=== PATIENT | male | born 1955 | race Caucasian/White ===

== ENCOUNTER → 2017-03-21 | Outpatient (CLI) | payer OTHER | LOC: M WUC 08:40 | PROVIDERS: ATTEND Emergency Medicine | DX: E78.2 Mixed hyperlipidemia (principal); N40.0 Benign prostatic hyperplasia without lower urinary tract symptoms ==

== ENCOUNTER 2018-05-21 06:38 | Day surgery (SDC) | payer BC, OTHER ==
[~2018-05-21] VITALS: Ht 157.5 cm; Wt 54.4 kg
[~2018-05-21 06:38] MED LIST: ASPI1TAB PO; MULTTAB PO; NS 1,000 ML IV ONE
[2018-05-21] MEDS ORDERED: PROPOFOL 200 MG/20 ML VIAL As Ordered ONE ×4 (07:30→08:21)
--- NOTE | 2018-05-21 08:26 | ROOR ---
Patient Name: Vito Obregon Procedure Date: 05/21/2018 7:35 AM Date of : 1955 Age: 62 Room: [facility] Gender: Male Note Status: Finalized Procedure: Colonoscopy Indications: Colon cancer screening in patient at increased risk: Family history of 1st-degree relative with colon polyps, Last colonoscopy 10 years ago Providers: Mike Cornejo MD Referring MD: Digna Leal MD Requesting Provider: Medicines: Monitored Anesthesia Care Complications: No immediate complications. Procedure: Pre-Anesthesia Assessment: - Prior to the procedure, a History and Physical was performed, and patient medications and allergies were reviewed. The patient is competent. The risks and benefits of the procedure and the sedation options and risks were discussed with the patient. All questions were answered and informed consent was obtained. Patient identification and proposed procedure were verified by the physician, the nurse and the anesthesiologist in the procedure room. Mental Status Examination: alert and oriented. Airway Examination: normal oropharyngeal airway and neck mobility. CV Examination: regular rate and rhythm. Prophylactic Antibiotics: The patient does not require prophylactic antibiotics. Prior Anticoagulants: The patient has taken no previous anticoagulant or antiplatelet agents. ASA Grade Assessment: II - A patient with mild systemic disease. After reviewing the risks and benefits, the patient was deemed in satisfactory condition to undergo the procedure. The anesthesia plan was to use monitored anesthesia care (MAC). Immediately prior to administration of medications, the patient was re-assessed for adequacy to receive sedatives. The heart rate, respiratory rate, oxygen saturations, blood pressure, adequacy of pulmonary ventilation, and response to care were monitored throughout the procedure. The physical status of the patient was re-assessed after the procedure. The Colonoscope was introduced through the anus and advanced to the sigmoid colon. The colonoscopy was unusually difficult due to a tortuous colon. The patient tolerated the procedure well. The quality of the bowel preparation was excellent. Findings: The perianal and digital rectal examinations were normal. The sigmoid colon was angulated to the extent that the scope could not be advanced further. I changed to a pediatric scope without success in advancing the scope beyond 45 cm. Impression: - Tortuous colon. - No specimens collected. Recommendation: - Perform an air contrast barium enema today. Mike Cornejo MD 05/21/2018 8:26:23 AM This report has been signed electronically. Number of Addenda: 0 Note Initiated On: 05/21/2018 7:35 AM Estimated Blood Loss: Estimated blood loss: none.
[2018-05-21 08:55] VITALS: BP 138/85
[2018-05-21] MEDS ORDERED: LIQUID POLIBAR PLUS 105% w/v 1900ML BTL As Ordered ONE (10:31)
--- NOTE | 2018-05-21 17:36 | REP ---
BARIUM ENEMA AIR CONTRAST The procedure was performed under the direct supervision of Dr. Rodriguez. The images were reviewed with Dr. Rodriguez. The patient is status post incomplete colonoscopy. The workforce management analyst film shows no organomegaly or pathological masses. The intestinal gas pattern is nonspecific. Liquid barium and air were instilled into the colon and retrograde flow of the barium air mixture. The colon is normal in position and contour. Haustration is unremarkable throughout. There are a few mobile filling defects seen throughout the examination consistent with small stool particles from incomplete cleansing. There are a few diverticula seen in the sigmoid colon. There are no annular constricting lesions identified. There are no polypoid masses identified. There is free flow of contrast to the cecum. There is reflux into the terminal ileum. Impression: There is diverticulosis without evidence of diverticulitis. Otherwise, unremarkable double contrast barium enema. 2 minutes of fluoroscopy time was utilized for this procedure. Reviewed by GLORIA Jensen 05/21/2018 04:46 P Electronically Signed by Vito Rodriguez MD 05/21/2018 05:26 P
== END 2018-05-21 10:37 | disposition home or self-care (01) ==
LOC: M OPP 06:38
PROVIDERS: ATTEND Surgery
DX: Z12.11 Encounter for screening for malignant neoplasm of colon (principal); Z83.71 Family history of colonic polyps; Q43.8 Other specified congenital malformations of intestine; E78.5 Hyperlipidemia, unspecified; M19.90 Unspecified osteoarthritis, unspecified site; N40.1 Benign prostatic hyperplasia with lower urinary tract symptoms; Z87.891 Personal history of nicotine dependence; Z79.82 Long term (current) use of aspirin

== ENCOUNTER → 2019-03-10 | Outpatient (REF) | payer OTHER ==
[~2019-03-10] MED LIST changes: -ASPI1TAB PO; +ASPI81TA26 PO; -NS 1,000 ML IV ONE
[2019-03-10 12:54] LABS: BASO % 0.5 % (0.0-1.0); EOS # 0.1 10^3/uL (0.0-0.5); EOS % 1.6 % (0.0-3.0); HEMATOCRIT 48.6 % (42.0-52.0); HEMOGLOBIN 16.7 g/dl (13.5-17.5); LYMPH # 1.8 10^3/uL (1.5-5.0); LYMPH % 33.6 % (24.0-44.0); MEAN CORPUSCULAR HEMOGLOBIN 30.8 pg (27.0-33.0); MEAN CORPUSCULAR HGB CONC 34.4 g/dl (32.0-36.5); MEAN CORPUSCULAR VOLUME 89.7 fl (80.0-96.0); MONO # 0.7 10^3/uL (0.0-0.8); MONO % 12.4 % (0.0-5.0); NEUTROPHILS # 2.8 10^3/uL (1.5-8.5); NEUTROPHILS % 51.7 % (36.0-66.0); PLATELET COUNT, AUTOMATED 285 10^3/uL (150-450); RED BLOOD COUNT 5.42 10^6/uL (4.30-6.10); WHITE BLOOD COUNT 5.5 10^3/uL (4.0-10.0)
[2019-03-10 13:26] LABS: ALBUMIN 4.2 GM/DL (3.2-5.2); ALT/SGPT 25 U/L (12-78); BILIRUBIN,TOTAL 1.9 MG/DL (0.2-1.0); BLOOD UREA NITROGEN 21 MG/DL (7-18); CALCIUM LEVEL 9.5 MG/DL (8.8-10.2); CARBON DIOXIDE LEVEL 28 MEQ/L (21-32); CHLORIDE LEVEL 109 MEQ/L (98-107); CHOLESTEROL LEVEL 219 MG/DL (<200); CHOLESTEROL RISK RATIO 3.775 (<5); CREATININE FOR GFR 1.05 MG/DL (0.70-1.30); GLOMERULAR FILTRATION RATE > 60.0 (>49); GLUCOSE, FASTING 98 MG/DL (70-100); HDL CHOLESTEROL 58 MG/DL (>40); LDL CHOLESTEROL 148 MG/DL (<100); NON-HDL-C 161 MG/DL; POTASSIUM SERUM 4.3 MEQ/L (3.5-5.1); PROSTATIC SPECIFIC AG MONITOR 2.22 NG/ML (< 4.00); SODIUM LEVEL 142 MEQ/L (136-145); TRIGLYCERIDES LEVEL 67 MG/DL (<150)
== END ==
LOC: M LABDRAWC 06:49
PROVIDERS: ATTEND Physician Assistant
DX: E78.2 Mixed hyperlipidemia (principal); K21.9 Gastro-esophageal reflux disease without esophagitis; N40.0 Benign prostatic hyperplasia without lower urinary tract symptoms

== ENCOUNTER → 2020-03-03 | Outpatient (REF) | payer OTHER ==
[2020-03-03 13:42] LABS: ALBUMIN 4.1 GM/DL (3.2-5.2); ALT/SGPT 109 U/L (12-78); BILIRUBIN,TOTAL 2.2 MG/DL (0.2-1.0); BLOOD UREA NITROGEN 21 MG/DL (7-18); CALCIUM LEVEL 9.8 MG/DL (8.8-10.2); CARBON DIOXIDE LEVEL 30 MEQ/L (21-32); CHLORIDE LEVEL 105 MEQ/L (98-107); CHOLESTEROL LEVEL 205 MG/DL (<200); CREATININE FOR GFR 1.18 MG/DL (0.70-1.30); GLOMERULAR FILTRATION RATE > 60.0 (>49); GLUCOSE, FASTING 83 MG/DL (70-100); HDL CHOLESTEROL 50 MG/DL (>40); LDL CHOLESTEROL 125 MG/DL (<100); NON-HDL-C 155 MG/DL; POTASSIUM SERUM 4.4 MEQ/L (3.5-5.1); SODIUM LEVEL 139 MEQ/L (136-145); TOTAL PROTEIN 7.1 GM/DL (6.4-8.2); TRIGLYCERIDES LEVEL 149 MG/DL (<150)
== END ==
LOC: M LABDRAWC 11:15
PROVIDERS: ATTEND Nurse Practitioner Family
DX: E78.2 Mixed hyperlipidemia (principal)

== ENCOUNTER → 2020-03-17 | Outpatient (CLI) | payer BC, OTHER ==
--- NOTE | 2020-03-17 15:57 | REP ---
INDICATION: MIXED HYPERLIPIDEMIA COMPARISON: None TECHNIQUE: Real time B-mode orozco scale ultrasound examination using curved array transducer. FINDINGS: The the liver is essentially normal although a 1.7 x 0.6 x 0.7 cm hypoechoic area is identified along the right lateral cortex which may represent small hepatic cyst and is otherwise nonspecific by ultrasound examination. Spleen, and pancreas are normal in contour, size, echogenicity, and overall appearance. No focal splenic or pancreatic lesions are identified. Splenic index equals 262. Gallbladder demonstrates cholelithiasis without wall thickening, or pericholecystic fluid. No biliary ductal dilatation is appreciated although the common bile duct measures 5.8 mm in diameter. The bilateral kidneys are normal in rate form shape without hydronephrosis or obvious abnormality. Left kidney measures 9.6 x 5.0 x 5.5 cm with 1.5 cm complex hypoechoic midpole region suggesting complex cyst. Right kidney measures 9.6 x 4.5 x 4.9 cm with increased central sinus fat. Atherosclerotic changes to the visualized abdominal aorta noted. No obvious ascites. IMPRESSION: 1. Small hepatic hypodensity may represent complex cyst. 2. Cholelithiasis. 3. 1.5 cm complex left renal hypodensity likely complex cyst. Consider pre and postcontrast CT of the abdomen to confirm finding. <Electronically signed by Live Yang > 03/17/20 [id number]
== END ==
LOC: M RAD 08:48
PROVIDERS: ATTEND Nurse Practitioner Family
DX: E78.2 Mixed hyperlipidemia (principal); K80.20 Calculus of gallbladder without cholecystitis without obstruction; R93.422 Abnormal radiologic findings on diagnostic imaging of left kidney

== ENCOUNTER → 2020-04-01 | Outpatient (REF) | payer OTHER ==
[2020-04-01 12:04] LABS: BASO % 0.5 % (0.0-1.0); EOS # 0.1 10^3/uL (0.0-0.5); EOS % 1.3 % (0.0-3.0); HEMATOCRIT 50.9 % (42.0-52.0); HEMOGLOBIN 17.4 g/dl (13.5-17.5); LYMPH # 1.8 10^3/uL (1.5-5.0); LYMPH % 29.4 % (24.0-44.0); MEAN CORPUSCULAR HEMOGLOBIN 30.9 pg (27.0-33.0); MEAN CORPUSCULAR HGB CONC 34.2 g/dl (32.0-36.5); MEAN CORPUSCULAR VOLUME 90.2 fl (80.0-96.0); MONO # 0.6 10^3/uL (0.0-0.8); MONO % 9.7 % (0.0-5.0); NEUTROPHILS # 3.6 10^3/uL (1.5-8.5); NEUTROPHILS % 58.8 % (36.0-66.0); PLATELET COUNT, AUTOMATED 301 10^3/uL (150-450); RED BLOOD COUNT 5.64 10^6/uL (4.30-6.10); WHITE BLOOD COUNT 6.2 10^3/uL (4.0-10.0)
[2020-04-01 12:16] LABS: INR 0.93; PROTHROMBIN TIME 12.7 SECONDS (12.5-14.3)
[2020-04-01 13:17] LABS: ALBUMIN 4.3 GM/DL (3.2-5.2); ALT/SGPT 28 U/L (12-78); BILIRUBIN,DIRECT 0.3 MG/DL (0.0-0.2); BILIRUBIN,TOTAL 1.9 MG/DL (0.2-1.0); FERRITIN 272 NG/ML (26-388); FREE T4 1.05 NG/DL (0.76-1.46); HEPATITIS B SURFACE ANTIBODY NEGATIVE (POSITIVE); HEPATITIS B SURFACE ANTIGEN NEGATIVE (NEGATIVE); HEPATITIS C VIRUS ABY INDEX < 0.0 INDEX (<0.8); IRON (FE) 152 UG/DL (65-175); LDH LACTATE DEHYDROGENASE 166 U/L (87-241); PERCENT SATURATION 53.9 % (19.7-50.0); TOTAL IRON BINDING CAPACITY 282 UG/DL (250-450); TOTAL PROTEIN 7.2 GM/DL (6.4-8.2)
[2020-04-02 08:09] LABS: HBVCOREDIFF1 Negative (Negative); HBVCOREDIFF2 Negative (Negative); TRANSFERRIN 219 mg/dL (177-329)
== END ==
LOC: M LABDRAWC 11:12
PROVIDERS: ATTEND Nurse Practitioner Family
DX: R94.5 Abnormal results of liver function studies (principal)

== ENCOUNTER → 2020-04-06 | Outpatient (CLI) | payer BC, OTHER ==
[~2020-04-06] MED LIST changes: +GASTROGRAFIN SOLUTION 30ML (Q9963) As Ordered ONE; +ISOVUE-370 76% 100ML VIAL As Ordered ONE
--- NOTE | 2020-04-06 18:49 | REP ---
INDICATION: CYST ON LIVER AND LEFT KIDNEY COMPARISON: Ultrasound 03/17/2020. TECHNIQUE: CT Scan of the abdomen was performed with and without intravenous administration of 100 cc of Isovue 370, without oral contrast. FINDINGS: Lung bases: Unremarkable. Liver: Along the posterior surface of the liver on the right, contiguous with the posterior right hemidiaphragm there is an oval hypodense area likely corresponding to the sonographic abnormality in this region. This is felt to represent a diaphragmatic slip. Gallbladder: Multiple small gallstones are seen in the gallbladder.Between the fundus of the gallbladder and hepatic flexure of the colon there is an oval structure with central enhancement measuring about 2.5 x 1.8 cm. The central enhancement is somewhat linear and appears to be contiguous with the lumen of the gallbladder. There is no fat plane the structure from the adjacent colon. I would favor that this represents focal thickening of the fundus of the gallbladder, and early neoplasm is not excluded. Spleen: Normal. Adrenals: Normal. Pancreas: Normal. Kidneys: There are no renal stones or hydronephrosis. In the mid left kidney at the site of a suspected complex cystic structure on the recent ultrasound there is a parapelvic cyst slightly greater than 1 cm in diameter. No other renal lesions are seen. Small and large bowel: Unremarkable. Free fluid: None. Abdominal aorta: No aneurysm or dissection. Adenopathy: None. Appendix: Not inflamed. Osseous structures: There are degenerative changes of the spine without compression deformity. IMPRESSION: Along the posterior surface of the liver on the right, contiguous with the posterior right hemidiaphragm there is an oval hypodense area felt to represent a diaphragmatic slip. Multiple gallstones in the gallbladder. Between the fundus of the gallbladder and hepatic flexure of the colon there is an oval thick-walled structure with what appears to be central mucosal enhancement. This enhancement appears to be contiguous with the lumen of the gallbladder and I suspect this represents focal significant thickening of the fundus of the gallbladder. Early neoplasm is not excluded. Parapelvic cyst mid left kidney corresponds to the cystic structure on the recent ultrasound. <Electronically signed by Iván Marin > 04/06/20 [id number]
== END ==
LOC: M RAD 16:28
PROVIDERS: ATTEND Nurse Practitioner Family
DX: N28.1 Cyst of kidney, acquired (principal); K76.89 Other specified diseases of liver

== ENCOUNTER → 2020-04-26 | Outpatient (CLI) | payer SELFPAY ==
[~2020-04-26] MED LIST changes: -GASTROGRAFIN SOLUTION 30ML (Q9963) As Ordered ONE; -ISOVUE-370 76% 100ML VIAL As Ordered ONE
== END ==
LOC: M LABSMTC 12:39
PROVIDERS: ATTEND Pediatrics
DX: Z20.828 Contact with and (suspected) exposure to other viral communicable diseases (principal)

== ENCOUNTER → 2020-06-15 | Outpatient (REF) | payer OTHER ==
[2020-06-16 12:41] LABS: CREATININE FOR GFR 1.3 MG/DL (0.70-1.30)
== END ==
LOC: M LABDRAWC 11:15
PROVIDERS: ATTEND Surgery
DX: R93.3 Abnormal findings on diagnostic imaging of other parts of digestive tract (principal); K80.20 Calculus of gallbladder without cholecystitis without obstruction

== ENCOUNTER → 2020-06-22 | Outpatient (CLI) | payer BC, OTHER ==
[~2020-06-22] MED LIST changes: +PROHANCE 279.3MG/ML 5ML VIAL As Ordered ONE
--- NOTE | 2020-06-23 08:44 | REP ---
INDICATION: CHOLELITHIASIS WITHOUT OBSTRUCTION. Thickened gallbladder fundus. COMPARISON: Comparison is made with the abdominal sonography from [address] abdomen from 06 April 2020.. TECHNIQUE: MRI without and with IV contrast/MRCP combined technique. T1 and T2 weighted axial and coronal sequences include spin echo, fast spin echo, in and out of phase, gradient echo, diffusion-weighted scans, and dynamically acquired sequential postcontrast images. MRCP acquisition is performed in maximum intensity projection images are included. The gadolinium enhancement dose is 5 mL intravenous ProHance, half dose protocol. FINDINGS: T2 weighted scans demonstrate 1 or 2 tiny subcentimeter cysts in the liver and pancreas. No biliary or pancreatic ductal dilation is observed. No focal liver mass lesion is seen. There are low T1 low T2 signal intensity gallstones layering in the dependent portion of the main body of the gallbladder. At the fundus of the gallbladder and a configuration suggestive of Phrygian cap, the "cap" portion of the gallbladder contains central low T1 low T2 signal intensity material with cystic change in its wall circumferentially. This portion of the gallbladder wall enhances similar to the gallbladder wall in the remainder of the gallbladder. There is no clear-cut enhancing mass lesion. I suspect the findings are present chronic cholecystitis affecting the fundus of the gallbladder with 1 or 2 stones within the fundus. There is certainly no mass in the adjacent liver. Normal adrenals are seen. No pancreatic mass lesion is observed. There is no evidence of choledocholithiasis or stricture in the biliary or pancreatic ductal tree on MRCP images. No upper abdominal adenopathy is seen. The kidneys enhance symmetrically. Sonography and CT has shown a parapelvic cyst in the left kidney. T2 weighted images show several small parapelvic cysts in the left kidney and 1 in the lower pole of the right kidney. No large cyst is seen. No splenic abnormality. IMPRESSION: Cholelithiasis and findings consistent with chronic cholecystitis. There is mild diffuse gallbladder wall thickening and enhancement, including what appears to be a somewhat contracted Phrygian cap at the fundus of the gallbladder likely containing stones. There is no evidence of enhancing mass. <Electronically signed by Low Rodriguez > 06/23/20 [id number]
== END ==
LOC: M RAD 16:46
PROVIDERS: ATTEND Surgery
DX: K80.80 Other cholelithiasis without obstruction (principal); K76.89 Other specified diseases of liver; K86.2 Cyst of pancreas
CPT/HCPCS: 74183; A9576

== ENCOUNTER → 2021-03-10 | Outpatient (REF) | payer BC, OTHER ==
[~2021-03-10] MED LIST changes: -PROHANCE 279.3MG/ML 5ML VIAL As Ordered ONE
[2021-03-10 11:34] LABS: BASO % 0.6 % (0.0-1.0); EOS # 0.1 10^3/uL (0.0-0.5); EOS % 1.4 % (0.0-3.0); HEMATOCRIT 48.5 % (42.0-52.0); HEMOGLOBIN 16.5 g/dl (13.5-17.5); LYMPH # 2.1 10^3/uL (1.5-5.0); LYMPH % 28.3 % (24.0-44.0); MEAN CORPUSCULAR HEMOGLOBIN 30.3 pg (27.0-33.0); MONO # 0.6 10^3/uL (0.0-0.8); MONO % 8.8 % (2.0-8.0); NEUTROPHILS # 4.4 10^3/uL (1.5-8.5); NEUTROPHILS % 60.8 % (36.0-66.0); PLATELET COUNT, AUTOMATED 291 10^3/uL (150-450); RED BLOOD COUNT 5.45 10^6/uL (4.30-6.10); WHITE BLOOD COUNT 7.3 10^3/uL (4.0-10.0)
[2021-03-10 12:05] LABS: ALBUMIN 3.9 GM/DL (3.2-5.2); ALT/SGPT 26 U/L (12-78); BILIRUBIN,TOTAL 1.8 MG/DL (0.2-1.0); BLOOD UREA NITROGEN 20 MG/DL (7-18); CALCIUM LEVEL 9.2 MG/DL (8.8-10.2); CARBON DIOXIDE LEVEL 26 MEQ/L (21-32); CHLORIDE LEVEL 107 MEQ/L (98-107); CHOLESTEROL LEVEL 242 MG/DL (<200); CHOLESTEROL RISK RATIO 4.938 (<5); CREATININE FOR GFR 1.24 MG/DL (0.70-1.30); FERRITIN 319 NG/ML (26-388); GLOMERULAR FILTRATION RATE > 60.0 (>49); GLUCOSE, FASTING 89 MG/DL (70-100); HDL CHOLESTEROL 49 MG/DL (>40); IRON (FE) 141 UG/DL (65-175); LDL CHOLESTEROL 174 MG/DL (<100); NON-HDL-C 193 MG/DL; PERCENT SATURATION 50.9 % (19.7-50.0); POTASSIUM SERUM 4.5 MEQ/L (3.5-5.1); SODIUM LEVEL 140 MEQ/L (136-145); TOTAL IRON BINDING CAPACITY 277 UG/DL (250-450); TOTAL PROTEIN 6.8 GM/DL (6.4-8.2); TRIGLYCERIDES LEVEL 94 MG/DL (<150)
== END ==
LOC: M LABDRAWC 11:12
PROVIDERS: ATTEND Nurse Practitioner Family
DX: Z00.00 Encounter for general adult medical examination without abnormal findings (principal); Z83.49 Family history of other endocrine, nutritional and metabolic diseases

== ENCOUNTER → 2022-01-05 | Outpatient (CLI) | payer BC, OTHER, MEDICARE ==
[2022-01-05 18:14] LABS: BASO % 0.3 % (0.0-1.0); EOS # 0.1 10^3/uL (0.0-0.5); EOS % 0.9 % (0.0-3.0); HEMATOCRIT 48.9 % (42.0-52.0); HEMOGLOBIN 16.5 g/dl (13.5-17.5); LYMPH # 1.9 10^3/uL (1.5-5.0); LYMPH % 17.2 % (24.0-44.0); MEAN CORPUSCULAR HEMOGLOBIN 30.8 pg (27.0-33.0); MEAN CORPUSCULAR HGB CONC 33.7 g/dl (32.0-36.5); MEAN CORPUSCULAR VOLUME 91.2 fl (80.0-96.0); MONO # 1.1 10^3/uL (0.0-0.8); MONO % 10.4 % (2.0-8.0); NEUTROPHILS # 7.6 10^3/uL (1.5-8.5); NEUTROPHILS % 70.1 % (36.0-66.0); PLATELET COUNT, AUTOMATED 304 10^3/uL (150-450); RED BLOOD COUNT 5.36 10^6/uL (4.30-6.10); WHITE BLOOD COUNT 10.9 10^3/uL (4.0-10.0)
[2022-01-05 18:46] LABS: ALT/SGPT 23 U/L (12-78); BILIRUBIN,TOTAL 1.5 MG/DL (0.2-1.0); BLOOD UREA NITROGEN 22 MG/DL (7-18); CALCIUM LEVEL 9.2 MG/DL (8.8-10.2); CARBON DIOXIDE LEVEL 26 MEQ/L (21-32); CHLORIDE LEVEL 105 MEQ/L (98-107); CREATININE FOR GFR 1.07 MG/DL (0.70-1.30); GLOMERULAR FILTRATION RATE > 60.0 (>49); GLUCOSE, FASTING 103 MG/DL (70-100); POTASSIUM SERUM 3.8 MEQ/L (3.5-5.1); SODIUM LEVEL 137 MEQ/L (136-145); TOTAL PROTEIN 6.7 GM/DL (6.4-8.2)
== END ==
LOC: M PLAIMG 15:38
PROVIDERS: ATTEND Nurse Practitioner Family
DX: K58.2 Mixed irritable bowel syndrome (principal)

== ENCOUNTER → 2022-03-08 | Outpatient (REF) | payer MEDICARE, BC, OTHER ==
[2022-03-08 18:12] LABS: BASO % 0.5 % (0.0-1.0); EOS # 0.1 10^3/uL (0.0-0.5); EOS % 1.5 % (0.0-3.0); HEMATOCRIT 48.6 % (42.0-52.0); HEMOGLOBIN 16.3 g/dl (13.5-17.5); LYMPH # 1.9 10^3/uL (1.5-5.0); MEAN CORPUSCULAR HEMOGLOBIN 30.8 pg (27.0-33.0); MEAN CORPUSCULAR HGB CONC 33.5 g/dl (32.0-36.5); MEAN CORPUSCULAR VOLUME 91.7 fl (80.0-96.0); MONO # 0.7 10^3/uL (0.0-0.8); MONO % 9.4 % (2.0-8.0); NEUTROPHILS # 4.7 10^3/uL (1.5-8.5); NEUTROPHILS % 62.3 % (36.0-66.0); PLATELET COUNT, AUTOMATED 329 10^3/uL (150-450); WHITE BLOOD COUNT 7.5 10^3/uL (4.0-10.0)
[2022-03-08 18:57] LABS: ALT/SGPT 26 U/L (12-78); BILIRUBIN,TOTAL 1.4 MG/DL (0.2-1.0); BLOOD UREA NITROGEN 19 MG/DL (7-18); C REACTIVE PROTEIN QUANTITATIV 0.34 MG/DL (0.00-0.30); CALCIUM LEVEL 8.9 MG/DL (8.8-10.2); CARBON DIOXIDE LEVEL 27 MEQ/L (21-32); CHLORIDE LEVEL 104 MEQ/L (98-107); CREATININE FOR GFR 1.04 MG/DL (0.70-1.30); GLOMERULAR FILTRATION RATE > 60.0 (>49); GLUCOSE, FASTING 119 MG/DL (70-100); POTASSIUM SERUM 4.6 MEQ/L (3.5-5.1); SODIUM LEVEL 139 MEQ/L (136-145); TOTAL PROTEIN 6.6 GM/DL (6.4-8.2)
== END ==
LOC: M LABDRAWC 17:25
PROVIDERS: ATTEND Student in an Organized Health Care Education/Training Program
DX: R19.7 Diarrhea, unspecified (principal)

== ENCOUNTER → 2022-05-09 | Outpatient (REF) | payer MEDICARE, BC, OTHER ==
[2022-05-09 11:36] LABS: BASO % 0.5 % (0.0-1.0); EOS # 0.1 10^3/uL (0.0-0.5); EOS % 1.7 % (0.0-3.0); HEMOGLOBIN 17.2 g/dl (13.5-17.5); LYMPH % 27.3 % (24.0-44.0); MEAN CORPUSCULAR HEMOGLOBIN 30.9 pg (27.0-33.0); MEAN CORPUSCULAR HGB CONC 34.4 g/dl (32.0-36.5); MEAN CORPUSCULAR VOLUME 89.8 fl (80.0-96.0); MONO # 0.8 10^3/uL (0.0-0.8); MONO % 10.1 % (2.0-8.0); NEUTROPHILS # 4.5 10^3/uL (1.5-8.5); NEUTROPHILS % 60.1 % (36.0-66.0); PLATELET COUNT, AUTOMATED 318 10^3/uL (150-450); RED BLOOD COUNT 5.57 10^6/uL (4.30-6.10); WHITE BLOOD COUNT 7.4 10^3/uL (4.0-10.0)
[2022-05-09 12:00] LABS: TOTAL IRON BINDING CAPACITY 297 UG/DL (250-425)
[2022-05-09 12:02] LABS: ALBUMIN 4.1 G/DL (3.2-5.2); ALKALINE PHOSPHATASE 119 U/L (46-116); ALT/SGPT 131 U/L (7.0-40); AST/SGOT 76 U/L (<34); BILIRUBIN,TOTAL 1.5 MG/DL (0.3-1.2); BLOOD UREA NITROGEN 21 MG/DL (9-23); CALCIUM LEVEL 9.6 MG/DL (8.3-10.6); CARBON DIOXIDE LEVEL 29 MMOL/L (20-31); CHLORIDE LEVEL 104 MMOL/L (98-107); CHOLESTEROL LEVEL 236 MG/DL (<200); CHOLESTEROL RISK RATIO 4.47 (<5); CREATININE FOR GFR 1.07 MG/DL (0.70-1.30); GLOMERULAR FILTRATION RATE > 60.0 (>49); GLUCOSE, FASTING 95 MG/DL (74-106); HDL CHOLESTEROL 52.7 MG/DL (>40); IRON (FE) 134 UG/DL (65-175); LDL CHOLESTEROL 170.7 MG/DL (<100); NON-HDL-C 183 MG/DL; PERCENT SATURATION 45.1 % (19.7-50.0); POTASSIUM SERUM 4.7 MMOL/L (3.5-5.1); SODIUM LEVEL 140 MMOL/L (136-145); TOTAL PROTEIN 6.6 G/DL (5.7-8.2); TRIGLYCERIDES LEVEL 63 MG/DL (<150)
[2022-05-09 12:03] LABS: FERRITIN 272.3 NG/ML (10.5-307.3)
== END ==
LOC: M LABDRAWC 11:13
PROVIDERS: ATTEND Nurse Practitioner Family
DX: E78.2 Mixed hyperlipidemia (principal); N40.0 Benign prostatic hyperplasia without lower urinary tract symptoms; Z83.49 Family history of other endocrine, nutritional and metabolic diseases
CPT/HCPCS: 36415; 80053; 80061; 82728; 83550; 85025; G0103

== ENCOUNTER → 2023-10-19 | Outpatient (REF) | payer MEDICARE, BC | LOC: M SFHCCLAY 12:35 | PROVIDERS: ATTEND Physician Assistant | DX: Z12.5 Encounter for screening for malignant neoplasm of prostate (principal) ==

== ENCOUNTER → 2024-05-14 | Outpatient (REF) | payer MEDICARE, BC ==
[2024-05-14 11:33] LABS: PSA SCREENING 2.17 NG/ML (< 4.00)
[2024-05-14 11:35] LABS: ALKALINE PHOSPHATASE 101 U/L (40-129); ALT/SGPT 26 U/L (7.0-40); AST/SGOT 20 U/L (<34); BILIRUBIN,TOTAL 1.7 MG/DL (0.3-1.2); BLOOD UREA NITROGEN 20 MG/DL (9-23); CALCIUM LEVEL 9.3 MG/DL (8.3-10.6); CARBON DIOXIDE LEVEL 29 MMOL/L (20-31); CHLORIDE LEVEL 108 MMOL/L (98-107); CHOLESTEROL LEVEL 222 MG/DL (<200); CREATININE FOR GFR 1.06 MG/DL (0.70-1.30); GLOMERULAR FILTRATION RATE > 60.0 (>49); GLUCOSE, FASTING 87 MG/DL (74-106); HDL CHOLESTEROL 49.3 MG/DL (>40); LDL CHOLESTEROL 155.9 MG/DL (<100); NON-HDL-C 172.7 MG/DL; POTASSIUM SERUM 4.3 MMOL/L (3.5-5.1); SODIUM LEVEL 143 MMOL/L (136-145); TOTAL PROTEIN 6.4 G/DL (5.7-8.2); TRIGLYCERIDES LEVEL 84 MG/DL (<150)
== END ==
LOC: M LABDRAWC 10:47
PROVIDERS: ATTEND Nurse Practitioner Family
DX: E78.2 Mixed hyperlipidemia (principal); N40.0 Benign prostatic hyperplasia without lower urinary tract symptoms; Z12.5 Encounter for screening for malignant neoplasm of prostate
CPT/HCPCS: 36415; 80053; 80061; G0103

== ENCOUNTER → 2024-08-11 | Outpatient (REF) | payer MEDICARE, OTHER ==
[2024-08-12 10:56] LABS: BILIRUBIN,DIRECT 0.4 MG/DL (<0.4); BILIRUBIN,TOTAL 1.6 MG/DL (0.3-1.2)
[2024-08-12 11:00] LABS: ALBUMIN 4.3 G/DL (3.2-5.2); TOTAL PROTEIN 6.9 G/DL (5.7-8.2)
== END ==
LOC: M LABDRAWC 17:40
PROVIDERS: ATTEND Student in an Organized Health Care Education/Training Program
DX: R79.89 Other specified abnormal findings of blood chemistry (principal)

== ENCOUNTER 2024-11-25 11:10 | Emergency (ER) | payer MEDICARE, BC ==
[~2024-11-25] VITALS: Ht 157.5 cm; Wt 55.1 kg
[2024-11-25] MEDS ORDERED: SILD25TA2 (11:18)
[2024-11-25] MEDS ORDERED: TAMS1CAP17 (11:18)
[2024-11-25 11:55] LABS: BASO # 0.0 10^3/uL (0.0-0.2); BASO % 0.5 % (0.0-1.0); EOS # 0.1 10^3/uL (0.0-0.5); EOS % 0.9 % (0.0-3.0); LYMPH # 1.9 10^3/uL (1.5-5.0); LYMPH % 24.8 % (24.0-44.0); MONO # 0.7 10^3/uL (0.0-0.8); MONO % 8.7 % (2.0-8.0); NEUTROPHILS # 5.0 10^3/uL (1.5-8.5); NEUTROPHILS % 64.8 % (36.0-66.0); PLATELET COUNT, AUTOMATED 286 10^3/uL (150-450)
[2024-11-25 12:07] LABS: INR 0.85
[2024-11-25 12:26] LABS: CK-MB VALUE MASS 1.6 NG/ML (<3.6)
[2024-11-25 12:28] LABS: ALT/SGPT 90.0 U/L (7.0-40); AST/SGOT 36.0 U/L (<34); CALCIUM LEVEL 9.8 MG/DL (8.3-10.6); CARBON DIOXIDE LEVEL 25.0 MMOL/L (20-31); CHLORIDE LEVEL 104.0 MMOL/L (98-107); CREATININE FOR GFR 0.99 MG/DL (0.70-1.30); GLOMERULAR FILTRATION RATE 82.5 (>49); POTASSIUM SERUM 4.2 MMOL/L (3.5-5.1); SODIUM LEVEL 143.0 MMOL/L (136-145)
[2024-11-25 12:30] LABS: CPK CREATINE PHOSPHOKINASE 90.0 U/L (46-171); MB/CK RELATIVE INDEX 1.77 (< OR =4)
[2024-11-25 13:03] VITALS: BP 149/78; TEMP 97.5; O2SAT 98
== END 2024-11-25 13:04 | disposition home or self-care (01) ==
LOC: M ED 11:10
DX: K80.20 Calculus of gallbladder without cholecystitis without obstruction (principal); I10 Essential (primary) hypertension

== ENCOUNTER → 2025-01-02 | Outpatient (CLI) | payer MEDICARE, BC ==
[~2025-01-02] MED LIST changes: +SILD25TA2; +TAMS1CAP17
== END ==
LOC: M RAD 07:11
PROVIDERS: ATTEND Student in an Organized Health Care Education/Training Program
DX: K80.20 Calculus of gallbladder without cholecystitis without obstruction (principal); R79.89 Other specified abnormal findings of blood chemistry; K63.5 Polyp of colon; K59.00 Constipation, unspecified; R10.13 Epigastric pain
CPT/HCPCS: 78227; A9537

== ENCOUNTER → 2025-02-04 | Outpatient (REF) | payer MEDICARE, BC ==
[2025-02-04 15:24] LABS: ALT/SGPT 16.0 U/L (7.0-40); AST/SGOT 15.0 U/L (<34)
== END ==
LOC: M LABDRAWC 13:25
PROVIDERS: ATTEND Student in an Organized Health Care Education/Training Program
DX: R79.89 Other specified abnormal findings of blood chemistry (principal); K80.20 Calculus of gallbladder without cholecystitis without obstruction; K63.5 Polyp of colon; K59.00 Constipation, unspecified; R10.13 Epigastric pain

== ENCOUNTER → 2025-03-06 | Outpatient (REF) | payer MEDICARE, BC ==
[2025-03-06 13:08] LABS: BASO # 0.0 10^3/uL (0.0-0.2); BASO % 0.6 % (0.0-1.0); EOS # 0.1 10^3/uL (0.0-0.5); EOS % 1.0 % (0.0-3.0); LYMPH # 2.3 10^3/uL (1.5-5.0); LYMPH % 32.9 % (24.0-44.0); MONO # 0.7 10^3/uL (0.0-0.8); MONO % 10.3 % (2.0-8.0); NEUTROPHILS # 3.9 10^3/uL (1.5-8.5); NEUTROPHILS % 54.8 % (36.0-66.0); PLATELET COUNT, AUTOMATED 309 10^3/uL (150-450)
[2025-03-06 13:11] LABS: CALCIUM LEVEL 9.5 MG/DL (8.3-10.6); CARBON DIOXIDE LEVEL 29.0 MMOL/L (20-31); CHLORIDE LEVEL 106.0 MMOL/L (98-107); CREATININE FOR GFR 1.1 MG/DL (0.70-1.30); GLOMERULAR FILTRATION RATE 72.2 (>42); POTASSIUM SERUM 4.4 MMOL/L (3.5-5.1); SODIUM LEVEL 143.0 MMOL/L (136-145)
== END ==
LOC: M LABDRAWC 11:55
PROVIDERS: ATTEND Nurse Practitioner Family
DX: Z01.818 Encounter for other preprocedural examination (principal)